=== PATIENT | female | born 1970 | race African-American/Black ===

== ENCOUNTER 2020-02-06 19:30 | Inpatient (IN) | payer OTHER ==
[2020-02-06 19:57] VITALS: BMI 25.7
[2020-02-06] MEDS ORDERED: ACETAMINOPHEN 1000 MG/100 ML VIAL (NON FORMULARY) IVPB ONE (20:11)
[2020-02-06] MEDS ORDERED: SODIUM CHLORIDE 0.9% 500 ML INFUS.BAG IV ONE (20:11)
[2020-02-06] MEDS ORDERED: FAMOTIDINE 20 MG/50 ML IVPB 20 MG/50 ML MG IVPB ONE ×2 (20:11→20:42)
[2020-02-06] MEDS ORDERED: MAG HYDROX/AL HYDROX/SIMETH 30 ML UNIT-DOSE CUP PO ONE (20:12)
--- NOTE | 2020-02-06 20:17 | PDOC ---
History of Present Illness - General Chief Complaint: Pain Stated Complaint: ABD PAIN Time Seen by Provider: 02/06/20 20:10 Past History - Medical History Allergies/Adverse Reactions: Allergies Allergy/AdvReac Type Severity Reaction Status Date / Time Shellfish Allergy Intermediate Difficulty Verified 11/05/12 22:51 Breathing shellfish derived Allergy Intermediate Difficulty Verified 11/06/12 08:06 Breathing cauliflower Allergy Intermediate Difficulty Uncoded 11/05/12 22:51 Breathing Home Medications: Ambulatory Orders Citalopram Hydrobromide [Celexa -] 20 mg PO DAILY 02/07/20 Olanzapine [Zyprexa] 20 mg PO DAILY 02/07/20 Folic Acid - 1 mg PO DAILY #10 tablet 02/08/20 Multivitamins [Multivit ([facility] Formulary)] 1 tab PO DAILY #10 tab 02/08/20 Anemia: No Asthma: No Cancer: No Cardiac Disorders: No CVA: No COPD: No CHF: No Dementia: No Diabetes: No GI Disorders: No Disorders: No HTN: No Hypercholesterolemia: No Kidney Stones: No Liver Disease: No Seizures: Yes (alcohol related) Thyroid Disease: No - Surgical History Abdominal Surgery: No Appendectomy: No Cardiac Surgery: No Cholecystectomy: No Lung Surgery: No Neurologic Surgery: No Orthopedic Surgery: No - Reproductive History PID: Yes - Immunization History Immunization Up to Date: Yes - Psycho-Social/Smoking History Smoking Status: Yes Smoking History: Current every day smoker Years of Tobacco Use: 30 Have you smoked in the past 12 months: Yes Number of Cigarettes Smoked Daily: 10 Cigars Per Day: 0 Information on smoking cessation initiated: No 'Breaking Loose' booklet given: 11/20/15 - Substance Abuse Hx (Audit-C & DAST Scrn) How often the patient has a drink containing alcohol: 4 0r more times/wk Number of drinks the patient has on a typical day: 3 or 4 How often the patient has six or more drinks on one occasion: Daily or almost daily Score: In Men: 4 or > Positive; In Women: 3 or > Positive: 9 Screen Result (Pos requires Nsg. Audit-10AR): Positive In the last yr the pt used illegal drug/Rx for NonMed reason: No Score: Yes response is considered Positive: 0 Screen Result (Positive result requires Nsg. DAST-10): Negative *Physical Exam - Vital Signs Last Vital Signs Temp Pulse Resp BP Pulse Ox 98.5 F 68 19 131/65 99 02/06/20 19:47 02/06/20 19:47 02/06/20 19:47 02/06/20 19:47 02/06/20 19:47 ED Treatment Course - LABORATORY CBC & Chemistry Diagram: 02/08/20 07:19 02/08/20 07:19 - RADIOLOGY Radiology Studies Ordered: Category Date Time Status ABDOMEN & PELVIS CT W/O CONTR [CT] Stat CT Scan 02/06/20 20:12 Ordered CHEST X-RAY PORTABLE* [RAD] Stat Radiology 02/06/20 20:11 Ordered Medical Decision Making - Medical Decision Making 02/06/20 20:13 HPI: 49yo F hx methadone use, MDD on celexa, alcohol abuse (3 large cans beer daily), and smoking sent from for 2 days constant gradual onset worsening nonradiating diffuse upper abdominal pain no improvement with advil worse with deep breaths. Endorses feeling warm yesterday. Endorses chronic poor appetite, worse in the past few days. Took 1 amoxicillin yesterday (daughter had from tooth surgery) but no other recent abx. Denies hx similar sx, F/C, D/C, N/V, headache, lightheadedness, SOB, CP, blood in stool, hematuria, dysuria, change of , hx surgeries, travel, sick contacts, vaginal bleeding or discharge. Post-menopausal. LBM yesterday. ROS: Constitutional: Positive for feeling of warmth. Negative for chills, fever, fatigue, diaphoresis. HENT: Negative for sore throat, rhinorrhea, congestion. Eyes: Negative for visual disturbance. Respiratory: Negative for shortness of breath, cough, and wheezing. Cardiovascular: Negative for chest pain, palpitations, and leg swelling. Gastrointestinal: Positive for abdominal pain, decreased PO intake. Negative for blood in stool, constipation, diarrhea, nausea, and vomiting. Genitourinary: Negative for dysuria, flank pain, and hematuria. Musculoskeletal: Negative for myalgias, back pain, and neck pain. Skin: Negative for rash. Neurological: Negative for light-headedness, dizziness, vertigo, syncope, weakness, numbness and headaches. Psychiatric/Behavioral: Negative for behavioral problems and confusion. PE: Gen: Alert, NAD, comfortable-appearing. HEENT: PERRL, EOMI, MMM, NCAT. No conjunctival pallor. Sclera are non-icteric. CV: Regular rate and rhythm. No murmurs, rubs, or gallops. PULM: No resp distress. CTAB, no wheezes, rales, or rhonchi. ABD: protuberant, soft, diffuse upper abdominal TTP w/guarding, ND, no rebound tenderness, no CVA tenderness, normoactive BS. BACK: No TTP of c/t/l-spine. No step-offs or deformities. MSK: No bony deformities. 2+ pulses in all extremities. NEURO: AAOx3. PERRL. No gross CN deficits. Strength and sensation grossly intact throughout. Normal gait. EXTREMITIES: No cyanosis. No clubbing. No edema. PSYCH: Normal mood and thought pattern. SKIN: Warm and dry. Normal capillary refill. No rashes. No jaundice. MDM: 49yo F hx methadone use, MDD on celexa, alcohol abuse (3 large cans beer daily), and smoking sent from for 2 days constant gradual onset worsening nonradiating diffuse upper abdominal pain worse with deep breaths. Hemodynamically stable, afebrile, diffuse upper abdominal TTP w/guarding. Ddx: pancreatitis, gastritis, SBO, cholelithiasis/cystitis, UTI, , mass/malignancy, infection, metabolic derangement, anemia. Low concern ACS/OH, arrhythmia, PNA. -EKG -CXR -CBC,CMP,Lipase,Cardiac profile,UA/UC/Upreg -CTAP w/IV contrast -IVF -Pain management: GI cocktail -Dispo: pending workup and reassessment 02/06/20 23:07 Labs reviewed. Notable for K 5.5. EKG reviewed: normal sinus rhythm, 60bpm, IA interval 130ms, QTc 504ms prolonged, TWIs in V1/V2/V3, compared to prior 11/20/15 new TWI in V3 -Repeat EKG s/p 1L NS CXR reviewed: No acute pathology CTAP reviewed: mild common bile duct dilatation 0.8cm diameter - suggest MRI/MCP, nonemergent unless otherwise clinically indicated. Diffuse hepatic steatosis with result hepatomegaly. Moderate atherosclerotic vascular calcifications. Cecum located within L mid abdomen presumably due to long mesentery. Appendix visualized within lower abdomen/upper pelvis centrally. No CT e/o acute appendicitis. -RUQ US 02/07/20 01:11 US reviewed: 0.7cm CBD dilatation, no other GB abnormalities seen Admit Discharge - Discharge Information Problems reviewed: Yes Clinical Impression/Diagnosis: Dilated cbd, acquired, Acute electrocardiogram changes, Abnormal EKG Abdominal pain Qualifiers: Abdominal location: unspecified location Qualified Code(s): R10.9 - Unspecified abdominal pain Condition: Improved - Admission Yes - Follow up/Referral - Patient Discharge Instructions - Post Discharge Activity
[2020-02-06 20:40] LABS: BASO % 0.7 % (0-2.0); EOS % 4.2 % (0-4.5); HEMATOCRIT 36.8 % (32.4-45.2); HEMOGLOBIN 12.4 GM/dL (10.7-15.3); LYMPH % 27.1 % (8-40); MCH 28.6 pg (25.7-33.7); MCHC 33.9 g/dl (32.0-36.0); MEAN CELL VOLUME 84.5 fl (80-96); MEAN PLT VOLUME 7.9 fl (7.5-11.1); MONO % 3.6 % (3.8-10.2); NEUT % 64.4 % (42.8-82.8); PLATELET COUNT 273 K/MM3 (134-434); RBC 4.35 M/mm3 (3.60-5.2); RDW 14.1 % (11.6-15.6); WHITE BLOOD COUNT 9.9 K/mm3 (4.0-10.0)
[2020-02-06] MEDS ORDERED: ACETAMINOPHEN INJECTION 100 ML IVPB ONE (20:42)
[2020-02-06] MEDS ORDERED: MAG HYDROX/AL HYDROX/SIMETH 30 ML UNIT-DOSE CUP ONE (20:42)
[2020-02-06 20:52] LABS: PH,URINE 5.5 (5.0-8.0); URINE APPEARANCE CLEAR; URINE BILIRUBIN NEGATIVE (NEGATIVE); URINE COLOR YELLOW; URINE GLUCOSE (UA) NEGATIVE (NEGATIVE); URINE KETONE NEGATIVE (NEGATIVE); URINE LEUK ESTERASE NEGATIVE (NEGATIVE); URINE NITRITE NEGATIVE (NEGATIVE); URINE PROTEIN NEGATIVE (NEGATIVE)
--- NOTE | 2020-02-06 20:52 | PDOC ---
Documentation entered by Denia Wilcox SCRIBE, acting as scribe for Linda Weir DO. Linda Weir DO: This documentation has been prepared by the kiarae, Denia Wilcox SCRIBE, under my direction and personally reviewed by me in its entirety. I confirm that the documentation accurately reflects all work, treatment, procedures, and medical decision making performed by me. Attending Attestation - Resident Resident Name: Clara Stern - ED Attending Attestation I have performed the following: I have examined & evaluated the patient, The case was reviewed & discussed with the resident, I agree w/resident's findings & plan, Exceptions are as noted - HPI HPI: 02/06/20 20:11 Patient is a year old female with a significant past medical history of smoking, alcohol abuse (multiple large beer cans daily), heroin dependence, methadone use, depression, and previous psychiatric hospitalizations, who presents to the ED with worsening abdominal pain x2 days. Patent described the pain as being constant and non radiating which is worse with "deep breaths". Patient stated nothing makes the pain better - patient attempted to self medicate with Advil but felt no improvement. Patient disclosed she was "feeling warm" yesterday. Patient denies: fever, chills, headache, lightheadedness, nausea, vomiting, SOB, chest pain, back pain, diarrhea, constipation, blood in stool, hematuria, dysuria, any changes, any previous surgeries, any recent travel, being in contact with a sick individual, or any other related symptoms. LBM: yesterday Allergies: shellfish, cauliflower PCP: Dr. Rosalie De La Rosa - Physicial Exam PE: 02/06/20 20:50 gen: aaox3, nad heart: +s1s2 reg lungs: cta b/l abd: soft, epigatric and periumbilical ttp without rebound or guarding, no cva ttp, nondistended ext: no c/c/e - Medical Decision Making 02/06/20 20:51 a/p: 49yo female with upper abd pain -hx of etoh use, admits to drinking more recently -concern for alcoholic gastritis vs pancreatitis -no n/v/d -no constipation -pt is on methadone -will send labs, ekg, ct abd/pelvis -will give ivf hydration -will monitor and reassess 02/06/20 21:18 labs reviewed lipase neg 02/06/20 23:20 pt with abnl ekg, new t wave inversions anteriorly, no cp or sob trop neg also ct shows dilated cbd, no stones seen will send for ultrasound most likely will need MRCP and obs for abnl ekg Heart Score/ECG Review - ECG Intrepretation Comment:: 02/06/20 23:39 sinus zoe at 54, nl axis, wve inversions v2-3, no acute st changes, abnl ekg Discharge - Discharge Information Problems reviewed: Yes Clinical Impression/Diagnosis: Abdominal pain, Abnormal EKG, Dilated cbd, acquired Condition: Fair - Admission Yes - Follow up/Referral Referrals: Rosalie De La Rosa MD [Primary Care Provider] - - Patient Discharge Instructions - Post Discharge Activity
[2020-02-06 21:10] LABS: ALBUMIN 3.4 g/dl (3.4-5.0); ALK PHOS 209 U/L (45-117); ANION GAP 9 MMOL/L (8-16); BILIRUBIN,TOTAL 0.8 mg/dL (0.2-1); BLOOD UREA NITROGEN 8.7 mg/dL (7-18); CALCIUM 9.4 mg/dL (8.5-10.1); CHLORIDE 102 mmol/L (98-107); CO2 26 mmol/L (21-32); CREATININE 0.8 mg/dL (0.55-1.3); GLUCOSE,RANDOM 95 mg/dL (74-106); LIPASE 151 U/L (73-393); POTASSIUM 5.5 mmol/L (3.5-5.1); SGOT/AST 95 U/L (15-37); SGPT/ALT 56 U/L (13-61); SODIUM 137 mmol/L (136-145); TOT PROT 8.2 g/dl (6.4-8.2)
[2020-02-06 21:20] LABS: EPI CELLS 11.8 /uL (0-25.1); HYALINE CASTS 0.12 /uL (0-3.1); URINE BACTERIA 95.4 /uL (0-1359); URINE RBC 15.6 /uL (0-23.9); URINE WBC 2.4 /uL (0-25.8)
[2020-02-06] MEDS ORDERED: MAGNESIUM SULF 50% (8.12 MEQ/2 ML-1 GM VIAL) IVPB ONE (23:36)
[2020-02-07] MEDS ORDERED: MAGNESIUM 1GM/D5W - 1 GM/100 ML IVPB IVPB ONE (01:19)
[2020-02-07] MEDS ORDERED: ACETAMINOPHEN 325 MG TABLET (FP) PO PRN (02:27)
[2020-02-07] MEDS ORDERED: THIAMINE HCL 100 MG TABLET (FP) PO ONE (02:37)
[2020-02-07] MEDS ORDERED: LACTATED RINGERS SOLUTION 1,000 ML/1,000 ML INFUS.BAG IV SCH (02:45)
--- NOTE | 2020-02-07 02:54 | HP ---
CHIEF COMPLAINT: Abdominal pain PCP: HISTORY OF PRESENT ILLNESS: 49 y.o. F PMHx Depression on celexa, substance abuse (takes 85mg methadone dialy), Alcohol abuse. Presenting after 3 days of abdominal pain. Patient stated she had been drinking and started to experience L sided abdominal pain that radiated towards the midline. Pain was described as a constant, sharp stabbing of 7/10 intensity and has not experienced this previously. Patient denies headache, chills, SOB, chest pain, N/V/D, dysuria. Pt. takes 85mg methadone daily, CIWA 1, no recent travel, no sick contacts, 2 children, LMP [address]: 0.8 cm dilation of CBD rec MRI/MRCP ER course was notable for: (1) EKG (2) Abd US & CT (3) Tylenol & Mag sulf Recent Travel: None PAST MEDICAL HISTORY: Depression, substance abuse, alcohol abuse PAST SURGICAL HISTORY: 3x D/C Social History: Smokin pack year Alcohol: 6 pack daily Drugs: recovering from heroin abuse; takes 85mg methadone daily Allergies Shellfish Allergy (Intermediate, Verified 11/05/12 22:51) Difficulty Breathing shellfish derived Allergy (Intermediate, Verified 11/06/12 08:06) Difficulty Breathing cauliflower Allergy (Intermediate, Uncoded 11/05/12 22:51) Difficulty Breathing HOME MEDICATIONS: Home Medications Medication Instructions Recorded Citalopram Hydrobromide [Celexa -] 10 mg PO DAILY 11/20/15 Citalopram Hydrobromide [Celexa -] 10 mg PO DAILY #30 tablet 11/20/15 Olanzapine [Zyprexa] 5 mg PO 11/20/15 REVIEW OF SYSTEMS CONSTITUTIONAL: Absent: fever, chills, diaphoresis, generalized weakness, malaise, loss of appetite, weight change HEENT: Absent: rhinorrhea, nasal congestion, throat pain, throat swelling, difficulty swallowing, mouth swelling, ear pain, eye pain, visual changes CARDIOVASCULAR: Absent: chest pain, syncope, palpitations, irregular heart rate, lightheadedness, peripheral edema RESPIRATORY: Absent: cough, shortness of breath, dyspnea with exertion, orthopnea, wheezing, stridor, hemoptysis GASTROINTESTINAL: abdominal pain Absent: abdominal distension, nausea, vomiting, diarrhea, constipation, melena, hematochezia GENITOURINARY: Absent: dysuria, frequency, urgency, hesitancy, hematuria, flank pain, genital pain MUSCULOSKELETAL: Absent: myalgia, arthralgia, joint swelling, back pain, neck pain SKIN: Absent: rash, itching, pallor HEMATOLOGIC/IMMUNOLOGIC: Absent: easy bleeding, easy bruising, lymphadenopathy, frequent infections ENDOCRINE: Absent: unexplained weight gain, unexplained weight loss, heat intolerance, cold intolerance NEUROLOGIC: Absent: headache, focal weakness or paresthesias, dizziness, unsteady gait, seizure, mental status changes, bladder or bowel incontinence PSYCHIATRIC: Absent: anxiety, depression, suicidal or homicidal ideation, hallucinations. PHYSICAL EXAMINATION Vital Signs - 24 hr 02/06/20 02/07/20 19:47 00:31 Temperature 98.5 F 97.4 F L Pulse Rate 68 Pulse Rate [ 55 L Left Radial] Respiratory 19 15 Rate Blood Pressure 131/65 Blood Pressure 144/72 [Right Arm] O2 Sat by Pulse 99 98 Oximetry (%) GENERAL: Awake, alert, and fully oriented, in no acute distress. HEAD: Normal with no signs of trauma. EYES: Pupils equal, round and reactive to light, extraocular movements intact, sclera anicteric, conjunctiva clear. EARS, NOSE, THROAT: Oropharynx clear without exudates. Moist mucous membranes. NECK: JVD, or masses. LUNGS: Breath sounds equal, clear to auscultation bilaterally. No wheezes, and no crackles. No accessory muscle use. HEART: Regular rate and rhythm, normal S1 and S2 without murmur, rub or gallop. ABDOMEN: Soft, epigastric tenderness, not distended, normoactive bowel sounds, no guarding, no rebound, no masses. MUSCULOSKELETAL: Normal range of motion at all joints. No CVA tenderness. UPPER EXTREMITIES: 2+ pulses, warm, well-perfused. No peripheral edema. LOWER EXTREMITIES: 2+ pulses, warm, well-perfused. No calf tenderness. No peripheral edema. NEUROLOGICAL: Cranial nerves II-XII intact. Normal speech. PSYCHIATRIC: Cooperative. Good eye contact. Appropriate mood and affect. SKIN: Warm, dry, normal turgor, no rashes or lesions noted. Laboratory Results - last 24 hr 02/06/20 02/06/20 02/06/20 20:30 20:30 20:30 WBC 9.9 RBC 4.35 Hgb 12.4 Hct 36.8 MCV 84.5 MCH 28.6 MCHC 33.9 RDW 14.1 Plt Count 273 MPV 7.9 Absolute Neuts (auto) 6.4 Neutrophils % 64.4 Lymphocytes % 27.1 Monocytes % 3.6 L Eosinophils % 4.2 Basophils % 0.7 Nucleated RBC % 0 Sodium 137 Potassium 5.5 H Chloride 102 Carbon Dioxide 26 Anion Gap 9 BUN 8.7 Creatinine 0.8 Est GFR (CKD-EPI)AfAm 98.93 Est GFR (CKD-EPI)NonAf 85.36 Random Glucose 95 Calcium 9.4 Total Bilirubin 0.8 AST 95 H ALT 56 Alkaline Phosphatase 209 H Creatine Kinase 151 Creatine Kinase Index No Result Required. CK-MB (CK-2) < 1.0 Troponin I < 0.02 Total Protein 8.2 Albumin 3.4 Lipase 151 Urine Color Urine Appearance Urine pH Ur Specific Elmo Urine Protein Urine Glucose (UA) Urine Ketones Urine Blood Urine Nitrite Urine Bilirubin Urine Urobilinogen Ur Leukocyte Esterase Urine WBC (Auto) Urine RBC (Auto) Urine Casts (Auto) U Epithel Cells (Auto) Urine Bacteria (Auto) Urine HCG, Qual Negative 02/06/20 02/07/20 20:30 01:47 WBC RBC Hgb Hct MCV MCH MCHC RDW Plt Count MPV Absolute Neuts (auto) Neutrophils % Lymphocytes % Monocytes % Eosinophils % Basophils % Nucleated RBC % Sodium Potassium Chloride Carbon Dioxide Anion Gap BUN Creatinine Est GFR (CKD-EPI)AfAm Est GFR (CKD-EPI)NonAf Random Glucose Calcium Total Bilirubin AST ALT Alkaline Phosphatase Creatine Kinase Creatine Kinase Index CK-MB (CK-2) Troponin I 0.02 Total Protein Albumin Lipase Urine Color Yellow Urine Appearance Clear Urine pH 5.5 Ur Specific Elmo 1.004 L Urine Protein Negative Urine Glucose (UA) Negative Urine Ketones Negative Urine Blood 1+ H Urine Nitrite Negative Urine Bilirubin Negative Urine Urobilinogen 1.0 Ur Leukocyte Esterase Negative Urine WBC (Auto) 2.4 Urine RBC (Auto) 15.6 Urine Casts (Auto) 0.12 U Epithel Cells (Auto) 11.8 Urine Bacteria (Auto) 95.4 Urine HCG, Qual ASSESSMENT/PLAN: 49 y.o. F PMHx Depression on celexa, substance abuse, Alcohol abuse. Presenting after 3 days of abdominal pain. # Abdominal Pain - ddx cholelithiasis, alcohol gastritis, - GI consult (Dr. Paul) - AST 95, Alk Phos 209, bili 0.9, lipase 151 - CT abd: 0.8cm dilation of CBD, no gross intraductal calculus identified - US abd: 0.7cm dilation of CBD - CBD dilatation potentially from prior stone passage - MRCP in morning - Tylenol 650mg Q6 - Protonix 40mg Daily # T wave inversion - Admission to tele - Repeat EKG - No T wave inversions from EKG 2015, no others for comparison - K+ 5.5, repeat BMP - Initial trops x2 (-) will repeat # Substance abuse - Currently in methadone program, confirm methadone in AM - Will continue in AM - Thiamine & folic acid order due to alcohol use - KOWS score 0 - CIWA 1 # Hematuria - +1 blood - Rest of UA normal, can repeat if needed #Depression - Holding celexa & olanzapine due to Qtc prolongation - Qtc 495ms - Serial EKG's reccomended # Covid r/o - Covid PCR Ordered - PCR ordered due to geographic location of pandemic - Placed in isolation precautions # FEN - LR @ 85mL/hr - Normal diet # DVT Prophylaxis - Lovenox 40mg SQ Daily # Dispo - Admission to tele; Will continue to monitor vitals and labs Visit type - Emergency Visit Emergency Visit: Yes ED Registration Date: 02/06/20 Care time: The patient presented to the Emergency Department on the above date and was hospitalized for further evaluation of their emergent condition. - New Patient This patient is new to me today: Yes Date on this admission: 02/06/20 - Critical Care Critical Care patient: No ATTENDING PHYSICIAN STATEMENT I saw and evaluated the patient. I reviewed the resident's note and discussed the case with the resident. I agree with the resident's findings and plan as documented. SUBJECTIVE: OBJECTIVE: ASSESSMENT AND PLAN:
[2020-02-07] MEDS ORDERED: THIAMINE HCL 100 MG TABLET (FP) ONE (03:35)
[2020-02-07 06:05] LABS: HEMOGLOBIN 11.1 GM/dL (10.7-15.3); MCH 27.9 pg (25.7-33.7); MCHC 33.5 g/dl (32.0-36.0); MEAN CELL VOLUME 83.3 fl (80-96); MEAN PLT VOLUME 7.5 fl (7.5-11.1); PLATELET COUNT 221 K/MM3 (134-434); RBC 3.96 M/mm3 (3.60-5.2); RDW 14.4 % (11.6-15.6); WHITE BLOOD COUNT 7.3 K/mm3 (4.0-10.0)
--- NOTE | 2020-02-07 06:17 | PN ---
Teaching Attending Note Name of Resident: Tyree Payan ATTENDING PHYSICIAN STATEMENT I saw and evaluated the patient. I reviewed the resident's note and discussed the case with the resident. I agree with the resident's findings and plan as documented. SUBJECTIVE: 49 years old F with PMH of depression, substance abuse, alcohol abuse presented to hospital with abdominal pain. As per patient she started having abd pain 3 days ago, diffuse and paraumbilical area, sharp, 6/10 in and off associated with lack of appetite. No nausea,vomiting and diarrhea. drinks 3 large beers daily 35 pack year smoking history OBJECTIVE: Gen: Alert, NAD, comfortable-appearing. HEENT: PERRL, EOMI, MMM, NCAT. No conjunctival pallor. Sclera are non-icteric. CV: Regular rate and rhythm. No murmurs, rubs, or gallops. PULM: No resp distress. CTAB, no wheezes, rales, or rhonchi. ABD: soft, epigastric and hypogastric tenderness, ND, no rebound tenderness, no CVA tenderness, normoactive BS. BACK: No TTP of c/t/l-spine. No step-offs or deformities. MSK: No bony deformities. 2+ pulses in all extremities. NEURO: AAOx3. PERRL. No gross CN deficits. Strength and sensation grossly intact throughout. Normal gait. EXTREMITIES: No cyanosis. No clubbing. No edema. PSYCH: Normal mood and thought pattern. SKIN: Warm and dry. Normal capillary refill. No rashes. No jaundice. Last Vital Signs Temp Pulse Resp BP Pulse Ox 97.4 F L 55 L 15 144/72 98 02/07/20 00:31 02/07/20 00:31 02/07/20 00:31 02/07/20 00:31 02/07/20 00:31 CT A/p - mild common bile duct dilatation 0.8cm diameter - suggest MRI/MCP, ASSESSMENT AND PLAN: Abd pain with dilated CBD - cholelithisis/ choledocholithiasis possible Alcoholic gastritis Abnormal EKG Substance abuse hematuria Depression r/O COVID Admit to tele serial cardiac enzymes EKG Hydration MRCP in AM thaimine, folate mg,phos,cpk ciwa resume metahdone PPI tylenol PRn rest of the plan as per resident's note discussed in details
[2020-02-07 06:32] LABS: BLOOD UREA NITROGEN 8.7 mg/dL (7-18); CALCIUM 9.1 mg/dL (8.5-10.1); CREATININE 0.7 mg/dL (0.55-1.3); MAGNESIUM 2.8 mg/dL (1.8-2.4); PHOSPHOROUS 4.1 mg/dL (2.5-4.9); POTASSIUM 3.4 mmol/L (3.5-5.1)
[2020-02-07] MEDS: KCL 10 MEQ IVPB 10 MEQ/100 ML INFUS.BAG IVPB SCH ×4 (07:30→09:14)
[2020-02-07] MEDS ORDERED: KCL 10 MEQ IVPB 20 MEQ/200 ML INFUS.BAG IVPB ONE (07:56)
[2020-02-07] MEDS: POTASSIUM CHLORIDE TABS 20 MEQ TABLET.ER (FP) PO ONE ×2 (08:51→09:02)
[2020-02-07] MEDS ORDERED: POTASSIUM CHLORIDE TABS 20 MEQ TABLET.ER (FP) PO ONE (08:51)
[2020-02-07] MEDS ORDERED: PANTOPRAZOLE SODIUM 40 MG/100 ML BAG IVPB ONE (08:52)
[2020-02-07] MEDS: PANTOPRAZOLE SODIUM 40 MG VIAL IVPUSH SCH (09:02)
--- NOTE | 2020-02-07 09:59 | CON.GI ---
Consult Consult Specialty:: GI Referred by:: Hospitalist Service Reason for Consultation:: Andominal pain - History of Present Illness Chief Complaint: Abdominal pain History of Present Illness: 49F admitted through [facility] ER for evaluation of 2 days of progressive mid/left sided abdominal pain. Ibuprpfen makes pain feel better. Deep inspiration and eating makes pain worse. Denies change in bowel habits, nausea, vomiting, rectal bleeding, melena, change in stool caliber. Drinks 3+ cans of beer per day. Blood alcohol level noted. Denies drug use. Current main complaint is pain in right arm where she is receiving IV potassium. No family history of colorectal cancer or other GI malignancy. She has never had a colonoscopy or upper endoscopy. CT scan of the A/P revealed CBD 8mm, fatty liver, cecum positioned in the left paramedian aspect of the abdomen, and otherwise was unrevealing. Abdominal US revealed no stones, no intrahepatic ductal dilatation, CBD 7mm, normal flow in the portal vein. CBC was normal. Chemistries revealed elevated ALP and AST. In review of [facility], ALP has been chronically evelated. She is maintained on daily methadone given her prior history of intranasal heroin abuse. - History Source History Provided By: Patient - Past Medical History Cardio/Vascular: Yes: Hyperlipdemia ...LMP: 10/20/15 Psych: Yes: Addictions (Alcoholism) - Past Surgical History Additional Surgical History: Denies - Alcohol/Substance Use Hx Alcohol Use: Yes (VODKA/HENESSEY) History of Substance Use: reports: Heroin (Intranasal heroin) - Smoking History Smoking history: Current every day smoker Have you smoked in the past 12 months: Yes Aproximately how many cigarettes per day: 10 - Social History Usual Living Arrangement: With Significant Other ADL: Independent Occupation: Unemployed Place of : [employer] History of Recent Travel: No Home Medications - Allergies Allergies/Adverse Reactions: Allergies Allergy/AdvReac Type Severity Reaction Status Date / Time Shellfish Allergy Intermediate Difficulty Verified 11/05/12 22:51 Breathing shellfish derived Allergy Intermediate Difficulty Verified 11/06/12 08:06 Breathing cauliflower Allergy Intermediate Difficulty Uncoded 11/05/12 22:51 Breathing - Home Medications Home Medications: Ambulatory Orders Citalopram Hydrobromide [Celexa -] 20 mg PO DAILY 02/07/20 Olanzapine [Zyprexa] 20 mg PO DAILY 02/07/20 Family Medical History Other Family History: Mother: : 51: [place]. Father: from unclear causes. 2 brothers, 1 sister: Healthy. 3 daughters, 1 son: healthy. No family history of colorectal cancer or other GI malignancy Review of Systems - Review of Systems Constitutional: denies: Chills, Fever Cardiovascular: denies: Chest Pain Respiratory: denies: Cough Gastrointestinal: reports: Abdominal Pain. denies: Bloating, Constipation, Diarrhea, Dysphagia, Indigestion, Melena, Rectal Bleeding, Vomiting Physical Exam-GI Vital Signs: Vital Signs Temperature 98.0 F 02/07/20 07:46 Pulse Rate 55 L 02/07/20 07:46 Respiratory Rate 16 02/07/20 07:46 Blood Pressure 157/104 H 02/07/20 07:46 O2 Sat by Pulse Oximetry (%) 97 02/07/20 07:46 Constitutional: Yes: Calm Eyes: No: Sclera Icterus Cardiovascular: Yes: Regular Rate and Rhythm Respiratory: Yes: CTA Bilaterally Gastrointestinal Inspection: No: Distention ...Auscultate: Yes: Normoactive Bowel Sounds ...Palpate: Yes: Tenderness (Mild TTP mid abdomen) ...Percussion: No: Tympanitic Edema: No (No LE edema) Neurological: Yes: Alert Labs: CBC, BMP 02/07/20 05:45 02/07/20 05:45 Imaging - Results Cat Scan: Report Reviewed, Image Reviewed Problem List - Problems (1) Abdominal pain Assessment/Plan: Unclear etiology. I think the mildly dilated CBD likely incidental finding, possibly from chronic methadone use. Suspect LFT abnormalities from active alc ohol use and fatty liver Advise: Check Hepatitis A/B panel, HCV, diagnostic NPO except meds Abdominal MRI with and without contrast / MRCP to evaluate CBD further and unexplained abdominal pain Advised complete alcohol cessation Monitor for withdrawal If pain persists and pending above, surgical consult, CT scan of abdomen and pelvis with PO contrast to assess bowel ad initial CT scan was non-contrast, EGD when COVID testing allows. Problems reviewed: Yes Code(s): R10.9 - UNSPECIFIED ABDOMINAL PAIN Qualifiers: Abdominal location: unspecified location Qualified Code(s): R10.9 - Unspecified abdominal pain
[2020-02-07] MEDS ORDERED: ENOXAPARIN NA (PORCINE) 40 MG/0.4 ML DISP.SYRIN SQ SCH (10:00)
[2020-02-07] MEDS ORDERED: PANTOPRAZOLE SODIUM 40 MG VIAL IVPUSH SCH (10:00)
[2020-02-07] MEDS ORDERED: POTASSIUM CHLORIDE ORAL LIQUID 20 MEQ/15 ML PO ONE (11:06)
--- NOTE | 2020-02-07 11:14 | EKG ---
Test Reason : Blood Pressure : / mmHG Vent. Rate : 060 BPM Atrial Rate : 060 BPM P-R Int : 130 ms QRS Dur : 088 ms QT Int : 504 ms P-R-T Axes : 020 041 062 degrees QTc Int : 504 ms POOR DATA QUALITY, INTERPRETATION MAY BE ADVERSELY AFFECTED NORMAL SINUS RHYTHM T WAVE ABNORMALITY, CONSIDER ANTERIOR ISCHEMIA PROLONGED QT ABNORMAL ECG NO PREVIOUS ECGS AVAILABLE Confirmed by TRACY OLVERA MD ([id number]) on 02/07/2020 11:14:19 AM Referred By: Confirmed By:TRACY OLVERA MD
--- NOTE | 2020-02-07 11:14 | EKG ---
Test Reason : Blood Pressure : / mmHG Vent. Rate : 054 BPM Atrial Rate : 054 BPM P-R Int : 140 ms QRS Dur : 084 ms QT Int : 522 ms P-R-T Axes : 026 045 055 degrees QTc Int : 495 ms SINUS BRADYCARDIA T WAVE ABNORMALITY, CONSIDER ANTERIOR ISCHEMIA PROLONGED QT ABNORMAL ECG WHEN COMPARED WITH ECG OF 06-FEB-2020 21:04, NO SIGNIFICANT CHANGE WAS FOUND Confirmed by TRACY OLVERA MD ([id number]) on 02/07/2020 11:14:07 AM Referred By: Confirmed By:TRACY OLVERA MD
[2020-02-07] MEDS ORDERED: DEXTROSE 5%-LACTATED RINGERS 1,000 ML IV SCH (11:15)
[2020-02-07] MEDS ORDERED: NICOTINE POLACRILEX 2 MG GUM BUC PRN (11:27)
[2020-02-07] MEDS: DEXTROSE 5%-LACTATED RINGERS 1,000 ML IV SCH (13:22)
--- NOTE | 2020-02-07 13:32 | PN ---
Teaching Attending Note Name of Resident: Shefali Dickinson ATTENDING PHYSICIAN STATEMENT I saw and evaluated the patient. I reviewed the resident's note and discussed the case with the resident. I agree with the resident's findings and plan as documented. SUBJECTIVE: pt seen and examined at bedside, not in acute distress OBJECTIVE: Last Vital Signs Temp Pulse Resp BP Pulse Ox 97.8 F 50 L 16 117/64 99 02/07/20 11:59 02/07/20 11:59 02/07/20 11:59 02/07/20 11:59 02/07/20 11:59 GENERAL: Awake, alert, and fully oriented, in no acute distress. HEENT: AT/NC, not pale/cyanosed or jaundiced, PERRLA, LUNGS: Breath sounds equal, clear to auscultation bilaterally. No wheezes, and no crackles. No accessory muscle use. HEART: Regular rate and rhythm, normal S1 and S2 ABDOMEN: Soft, obese, epigastric tenderness but no rebound tenderness, BS+ MUSCULOSKELETAL: Normal range of motion at all joints. No bony deformities or tenderness. No CVA tenderness. UPPER EXTREMITIES: 2+ pulses, warm, well-perfused. No cyanosis. No clubbing. No peripheral edema. LOWER EXTREMITIES: 2+ pulses, warm, well-perfused. No calf tenderness. No peripheral edema. NEUROLOGICAL: Cranial nerves II-XII intact. Normal speech. CBCD WBC 7.3 K/mm3 (4.0-10.0) 02/07/20 05:45 RBC 3.96 M/mm3 (3.60-5.2) 02/07/20 05:45 Hgb 11.1 GM/dL (10.7-15.3) 02/07/20 05:45 Hct 33.0 % (32.4-45.2) 02/07/20 05:45 MCV 83.3 fl (80-96) 02/07/20 05:45 MCHC 33.5 g/dl (32.0-36.0) 02/07/20 05:45 RDW 14.4 % (11.6-15.6) 02/07/20 05:45 Plt Count 221 K/MM3 (134-434) 02/07/20 05:45 MPV 7.5 fl (7.5-11.1) 02/07/20 05:45 CMP Sodium 139 mmol/L (136-145) 02/07/20 05:45 Potassium 3.4 mmol/L (3.5-5.1) L 02/07/20 05:45 Chloride 104 mmol/L (98-107) 02/07/20 05:45 Carbon Dioxide 29 mmol/L (21-32) 02/07/20 05:45 Anion Gap 6 MMOL/L (8-16) L 02/07/20 05:45 BUN 8.7 mg/dL (7-18) 02/07/20 05:45 Creatinine 0.7 mg/dL (0.55-1.3) 02/07/20 05:45 Calcium 9.1 mg/dL (8.5-10.1) 02/07/20 05:45 Total Bilirubin 0.8 mg/dL (0.2-1) 02/06/20 20:30 AST 95 U/L (15-37) H 02/06/20 20:30 ALT 56 U/L (13-61) 02/06/20 20:30 Alkaline Phosphatase 209 U/L (45-117) H 02/06/20 20:30 Total Protein 8.2 g/dl (6.4-8.2) 02/06/20 20:30 Albumin 3.4 g/dl (3.4-5.0) 02/06/20 20:30 ASSESSMENT AND PLAN: 49 y.o. F PMHx Depression, polysubstance abuse (on methadone daily), EtOH abuse. Presenting after 3 days of abdominal pain. # Epigastric pain - possibly gastritis due to EtOH - h/o PID, unprotected sex with multiple partners - GI consult appreciated - advised about smoking, EtOH cessation. - trend electrolytes, replace as indicated - thiamine, folate, b12, MV - MRCP pending - US, CT finding noted - EKG, troponin non remarkable - will obtain hepatitis panel, STD screening, HIV - May get EGD pending COVID status - monitor CIWA - DVT prophylaxis # h/o depression
--- NOTE | 2020-02-07 13:44 | PN ---
Physical Exam: SUBJECTIVE: Patient seen and examined at bedside this morning. Patient admitted overnight for left-sided abdominal pain. Patient denies any fevers, chills, nausea, vomiting, chest pain, SOB, diarrhea, urinary symptoms. OBJECTIVE: Vital Signs Temperature 97.8 F 02/07/20 11:59 Pulse Rate 50 L 02/07/20 11:59 Respiratory Rate 16 02/07/20 11:59 Blood Pressure 117/64 02/07/20 11:59 O2 Sat by Pulse Oximetry (%) 99 02/07/20 11:59 GENERAL: The patient is awake, alert, and fully oriented, in no acute distress. HEAD: Normal with no signs of trauma. EYES:PERRLA , EOMI, sclera icteric, conjunctiva clear. ENT: moist mucous membranes. NECK: full range of motion, supple. LUNGS: Breath sounds equal, clear to auscultation bilaterally HEART: Regular rate and rhythm, S1, S2 ABDOMEN: Soft, +Epigastric/LUQ tenderness, nondistended, normoactive bowel sounds EXTREMITIES: 2+ pulses, warm, well-perfused, no edema. NEUROLOGICAL: Cranial nerves II through XII grossly intact. Normal speech, normal gait. PSYCH: Normal mood, normal affect. SKIN: Warm, dry, normal turgor Laboratory Results - last 24 hr 02/06/20 02/06/20 02/06/20 20:30 20:30 20:30 WBC 9.9 RBC 4.35 Hgb 12.4 Hct 36.8 MCV 84.5 MCH 28.6 MCHC 33.9 RDW 14.1 Plt Count 273 MPV 7.9 Absolute Neuts (auto) 6.4 Neutrophils % 64.4 Lymphocytes % 27.1 Monocytes % 3.6 L Eosinophils % 4.2 Basophils % 0.7 Nucleated RBC % 0 Sodium 137 Potassium 5.5 H Chloride 102 Carbon Dioxide 26 Anion Gap 9 BUN 8.7 Creatinine 0.8 Est GFR (CKD-EPI)AfAm 98.93 Est GFR (CKD-EPI)NonAf 85.36 Random Glucose 95 Calcium 9.4 Phosphorus Magnesium Total Bilirubin 0.8 AST 95 H ALT 56 Alkaline Phosphatase 209 H Creatine Kinase 151 Creatine Kinase Index No Result Required. CK-MB (CK-2) < 1.0 Troponin I < 0.02 Total Protein 8.2 Albumin 3.4 Triglycerides Cholesterol Total LDL Cholesterol HDL Cholesterol Lipase 151 Urine Color Urine Appearance Urine pH Ur Specific [place] Urine Protein Urine Glucose (UA) Urine Ketones Urine Blood Urine Nitrite Urine Bilirubin Urine Urobilinogen Ur Leukocyte Esterase Urine WBC (Auto) Urine RBC (Auto) Urine Casts (Auto) U Epithel Cells (Auto) Urine Bacteria (Auto) Urine HCG, Qual Negative 02/06/20 02/07/20 02/07/20 20:30 01:47 05:45 WBC 7.3 RBC 3.96 Hgb 11.1 Hct 33.0 MCV 83.3 MCH 27.9 MCHC 33.5 RDW 14.4 Plt Count 221 MPV 7.5 Absolute Neuts (auto) Neutrophils % Lymphocytes % Monocytes % Eosinophils % Basophils % Nucleated RBC % Sodium Potassium Chloride Carbon Dioxide Anion Gap BUN Creatinine Est GFR (CKD-EPI)AfAm Est GFR (CKD-EPI)NonAf Random Glucose Calcium Phosphorus Magnesium Total Bilirubin AST ALT Alkaline Phosphatase Creatine Kinase Creatine Kinase Index CK-MB (CK-2) Troponin I 0.02 Total Protein Albumin Triglycerides Cholesterol Total LDL Cholesterol HDL Cholesterol Lipase Urine Color Yellow Urine Appearance Clear Urine pH 5.5 Ur Specific [place] 1.004 L Urine Protein Negative Urine Glucose (UA) Negative Urine Ketones Negative Urine Blood 1+ H Urine Nitrite Negative Urine Bilirubin Negative Urine Urobilinogen 1.0 Ur Leukocyte Esterase Negative Urine WBC (Auto) 2.4 Urine RBC (Auto) 15.6 Urine Casts (Auto) 0.12 U Epithel Cells (Auto) 11.8 Urine Bacteria (Auto) 95.4 Urine HCG, Qual 02/07/20 05:45 WBC RBC Hgb Hct MCV MCH MCHC RDW Plt Count MPV Absolute Neuts (auto) Neutrophils % Lymphocytes % Monocytes % Eosinophils % Basophils % Nucleated RBC % Sodium 139 Potassium 3.4 L Chloride 104 Carbon Dioxide 29 Anion Gap 6 L BUN 8.7 Creatinine 0.7 Est GFR (CKD-EPI)AfAm 116.27 Est GFR (CKD-EPI)NonAf 100.32 Random Glucose 85 Calcium 9.1 Phosphorus 4.1 Magnesium 2.8 H Total Bilirubin AST ALT Alkaline Phosphatase Creatine Kinase Creatine Kinase Index CK-MB (CK-2) Troponin I 0.02 Total Protein Albumin Triglycerides 86 Cholesterol 220 H Total LDL Cholesterol 102 H HDL Cholesterol 93 H Lipase Urine Color Urine Appearance Urine pH Ur Specific [place] Urine Protein Urine Glucose (UA) Urine Ketones Urine Blood Urine Nitrite Urine Bilirubin Urine Urobilinogen Ur Leukocyte Esterase Urine WBC (Auto) Urine RBC (Auto) Urine Casts (Auto) U Epithel Cells (Auto) Urine Bacteria (Auto) Urine HCG, Qual Active Medications Generic Name Dose Route Start Last Admin Trade Name Freq PRN Reason Stop Dose Admin Acetaminophen 650 mg 02/07/20 02:27 Tylenol - PO Q6H PRN PAIN Enoxaparin Sodium 40 mg 02/07/20 10:00 Lovenox - SQ DAILY ILAN Folic Acid 1 mg 02/08/20 10:00 Folic Acid - PO DAILY ILAN Dextrose/Lactated Ringer's 1,000 mls @ 100 mls/hr 02/07/20 12:35 02/07/20 13:22 D5-Lr - IV 100 mls/hr ASDIR ILAN Administration Multivitamins/Minerals/Vitamin C 1 tab 02/08/20 10:00 Tab-A-Vit - PO DAILY ILAN Nicotine Polacrilex 2 mg 02/07/20 11:27 Nicorette Gum - BUC Q2H PRN NICOTINE REPLACEMENT RX Pantoprazole Sodium 40 mg 02/07/20 10:00 02/07/20 09:02 Protonix Iv IVPUSH 40 mg DAILY ILAN Administration Thiamine HCl 100 mg 02/08/20 10:00 Vitamin B1 - PO DAILY ILAN ASSESSMENT/PLAN: Patient is a 49 year old female with PMH of depression, substance abuse, alcohol abuse (3 beers/day), [id number] history and PID who presented to the ED with 3 days of epigastric/LUQ abdominal pain. #Abdominal pain - Likely 2/2 to gastritis 2/2 EtOH use, on chronic methadone - CT Abd w/o contrast: Slightly dilated CBD (8 mm), no evidence of stone - Abdomen MRI/MRCP pending for further evaluation - Protonix 40 mg IV Daily - CXR, EKG noted, Troponin x3 and CK-MB negative. - Will keep NPO except meds - Continue IVF - Tylenol Q6H PRN for pain - If pain persists, will consider surgery as well as CTAP with PO contrast - For possible EGD, pending COVID testing - Gastroenterology (Dr. Martell) consulted. Recommendations appreciated. #Transaminitis - likely 2/2 alcohol use fatty liver - RUQ US: Mild hepatomegaly with diffuse fatty infiltration of the liver - Will order hepatitis panel - advise alcohol cessation - Will continue to monitor and trend LFTs #Polysubstance use - Alcohol, Nicotine and methadone - Currently CIWA 0, will continue to monitor - Continue Thiamine/folic acid/MV - On Methadone program, patient unwilling to share the details of her medication or pharmacy, as it will be "confusing because they give her the bottles". Patient understands that she will not be able to receive methadone if not confirmed. - will monitor and start detox prn - Currently smokes 10 cigarettes/day - Nicotine gum 2 mg Q2H #Depression - Held celexa/olanzapine due to QTc (495 and 504 ms on 2 EKGs) prolongation -avoid QT prolonging agents #Hx of PID - PAtient gave consent to test for STD panel and HIV #FEN - IVF D5-LR 100 cc/hr - Routine electrolyte monitoring - NPO #DVT PPX - Lovenox 40 mg daily #Disposition -full code -med surg Visit type - Emergency Visit Emergency Visit: Yes ED Registration Date: 02/06/20 Care time: The patient presented to the Emergency Department on the above date and was hospitalized for further evaluation of their emergent condition. - New Patient This patient is new to me today: Yes Date on this admission: 02/07/20 - Critical Care Critical Care patient: No ATTENDING PHYSICIAN STATEMENT I saw and evaluated the patient. I reviewed the resident's note and discussed the case with the resident. I agree with the resident's findings and plan as documented. SUBJECTIVE: OBJECTIVE: ASSESSMENT AND PLAN:
[2020-02-08] MEDS: DEXTROSE 5%-LACTATED RINGERS 1,000 ML IV SCH (03:15)
[2020-02-08 08:06] LABS: HEMATOCRIT 34.8 % (32.4-45.2); HEMOGLOBIN 11.6 GM/dL (10.7-15.3); LYMPH % 43.8 % (8-40); MCH 27.7 pg (25.7-33.7); MCHC 33.2 g/dl (32.0-36.0); MEAN CELL VOLUME 83.5 fl (80-96); MEAN PLT VOLUME 7.9 fl (7.5-11.1); MONO % 5.4 % (3.8-10.2); NEUT % 43.8 % (42.8-82.8); PLATELET COUNT 256 K/MM3 (134-434); RBC 4.16 M/mm3 (3.60-5.2); RDW 14.2 % (11.6-15.6); WHITE BLOOD COUNT 7.2 K/mm3 (4.0-10.0)
[2020-02-08 08:36] LABS: ALBUMIN 3.5 g/dl (3.4-5.0); BILIRUBIN,TOTAL 0.9 mg/dL (0.2-1); BLOOD UREA NITROGEN 8.6 mg/dL (7-18); CALCIUM 10.1 mg/dL (8.5-10.1); CREATININE 0.8 mg/dL (0.55-1.3); MAGNESIUM 2.5 mg/dL (1.8-2.4); PHOSPHOROUS 4.1 mg/dL (2.5-4.9); POTASSIUM 4.2 mmol/L (3.5-5.1); TOT PROT 7.6 g/dl (6.4-8.2)
--- NOTE | 2020-02-08 09:27 | PN ---
Physical Exam: SUBJECTIVE: Patient seen and examined, asking for food OBJECTIVE: Vital Signs Period Temp Pulse Resp BP Sys/Bond Pulse Ox Last 24 Hr 97.6 F-98.2 F 50-61 16-20 117-157/64-93 98-99 GENERAL: The patient is awake, alert, and fully oriented, in no acute distress. HEENT: AT/NC, PERRLA LUNGS: Breath sounds equal, clear to auscultation bilaterally, no wheezes, no crackles, no accessory muscle use. HEART: Regular rate and rhythm, S1, S2 without murmur, rub or gallop. ABDOMEN: Soft, nontender, nondistended, normoactive bowel sounds, no guarding, no rebound, no hepatosplenomegaly, no masses. EXTREMITIES: 2+ pulses, warm, well-perfused, no edema. NEUROLOGICAL: Cranial nerves II through XII grossly intact. Normal speech, gait not observed. PSYCH: Normal mood, normal affect. SKIN: Warm, dry, normal turgor, no rashes or lesions noted Laboratory Results - last 24 hr 02/08/20 02/08/20 02/08/20 07:19 07:19 07:19 WBC 7.2 RBC 4.16 Hgb 11.6 Hct 34.8 MCV 83.5 MCH 27.7 MCHC 33.2 RDW 14.2 Plt Count 256 MPV 7.9 Absolute Neuts (auto) 3.1 Neutrophils % 43.8 D Lymphocytes % 43.8 H D Monocytes % 5.4 Eosinophils % 6.0 H Basophils % 1.0 Nucleated RBC % 0 Sodium 137 Potassium 4.2 Chloride 105 Carbon Dioxide 27 Anion Gap 5 L BUN 8.6 Creatinine 0.8 Est GFR (CKD-EPI)AfAm 98.93 Est GFR (CKD-EPI)NonAf 85.36 Random Glucose 100 Calcium 10.1 Phosphorus 4.1 Magnesium 2.5 H Total Bilirubin 0.9 AST 45 H ALT 45 Alkaline Phosphatase 190 H Total Protein 7.6 Albumin 3.5 Alcohol, Quantitative < 3 Active Medications Generic Name Dose Route Start Last Admin Trade Name Freq PRN Reason Stop Dose Admin Acetaminophen 650 mg 02/07/20 02:27 Tylenol - PO Q6H PRN PAIN Enoxaparin Sodium 40 mg 02/07/20 10:00 Lovenox - SQ DAILY [facility] Folic Acid 1 mg 02/08/20 10:00 Folic Acid - PO DAILY ILAN Dextrose/Lactated Ringer's 1,000 mls @ 100 mls/hr 02/07/20 12:35 02/08/20 03:15 D5-Lr - IV 100 mls/hr ASDIR ILAN Administration Multivitamins/Minerals/Vitamin C 1 tab 02/08/20 10:00 Tab-A-Vit - PO DAILY ILAN Nicotine Polacrilex 2 mg 02/07/20 11:27 Nicorette Gum - BUC Q2H PRN NICOTINE REPLACEMENT RX Pantoprazole Sodium 40 mg 02/07/20 10:00 02/07/20 09:02 Protonix Iv IVPUSH 40 mg DAILY ILAN Administration Thiamine HCl 100 mg 02/08/20 10:00 Vitamin B1 - PO DAILY ILAN ASSESSMENT/PLAN: 49 y.o. F PMHx Depression, polysubstance abuse (on methadone daily), EtOH abuse. Presenting after 3 days of abdominal pain. # Epigastric pain - resolved - possibly gastritis due to EtOH - h/o PID, unprotected sex with multiple partners - GI consult appreciated - advised about smoking, EtOH abstinence - trend electrolytes, replace as indicated - thiamine, folate, b12, MV - MRCP done, pending report - hepatitis panel, STD screening, HIV - advanced low sodium diet - DVT prophylaxis # h/o depression # polysubstance abuse Visit type - Emergency Visit Emergency Visit: Yes ED Registration Date: 02/06/20 Care time: The patient presented to the Emergency Department on the above date and was hospitalized for further evaluation of their emergent condition. - New Patient This patient is new to me today: No - Critical Care Critical Care patient: No - Discharge Referral Referred to [facility] Med P.C.: No
[2020-02-08 09:41] VITALS: BP 141/93; PULSE 59; TEMP 98.2
[2020-02-08] MEDS: PANTOPRAZOLE SODIUM 40 MG VIAL IVPUSH SCH (09:46)
[2020-02-08] MEDS ORDERED: THIAMINE HCL 100 MG TABLET (FP) PO SCH (10:00)
[2020-02-08] MEDS ORDERED: FOLIC ACID 1 MG TABLET (FP) PO SCH (10:00)
[2020-02-08] MEDS ORDERED: MULTIVITAMINS (DAILY MVI) TABLET (FP) PO SCH (10:00)
--- NOTE | 2020-02-08 13:23 | PN.GI ---
GI Progress Note Subjective: GI NOte ( covering Dr Martell): Pain has resolved. LFTs resolving with alcohol abstinence. Has fatty liver which I explained to her reflects alcohol injury and advised her to refrain from any further intake and to also seek weaning off the methadone and to quit smoking. I explained that her dilated CBD likely reflects methadone induced spasm of the sphincter of Oddi. I reviewed the MRCP which reveals a dilated CBD but no stones or overt neoplasm. - Objective Vital Signs: Vital Signs Temperature 98.2 F 02/08/20 09:40 Pulse Rate 59 L 02/08/20 09:40 Respiratory Rate 02/08/20 09:40 Blood Pressure 141/93 02/08/20 09:40 O2 Sat by Pulse Oximetry (%) 98 02/08/20 09:40 Laboratory Tests 02/06/20 02/08/20 02/08/20 20:30 07:19 07:19 WBC 7.2 Total Bilirubin 0.8 0.9 AST 95 H 45 H ALT 56 45 Alkaline Phosphatase 209 H 190 H Constitutional: No Distress Gastrointestinal Inspection: Yes: WNL ...Auscultate: Yes: Normoactive Bowel Sounds ...Palpate: Yes: Soft, Other (nontender) Labs: CBC, BMP 02/08/20 07:19 02/08/20 07:19 Assessment/Plan Impression - Resolved pain likely due to alcoholic gastritis - Resolving alcoholic hepatitis Plan: -- The need for alcohol and other multisubstance abuse and weaning from methadone has been stressed -- No GI objections to discharge Problem List - Problems (1) Alcoholic gastritis Code(s): K29.20 - ALCOHOLIC GASTRITIS WITHOUT BLEEDING (2) Alcoholic hepatitis without ascites Code(s): K70.10 - ALCOHOLIC HEPATITIS WITHOUT ASCITES (3) Alcoholic fatty liver Code(s): K70.0 - ALCOHOLIC FATTY LIVER (4) Abdominal pain Code(s): R10.9 - UNSPECIFIED ABDOMINAL PAIN Qualifiers: Abdominal location: unspecified location Qualified Code(s): R10.9 - Unspecified abdominal pain (5) Dilated cbd, acquired Code(s): K83.8 - OTHER SPECIFIED DISEASES OF BILIARY TRACT (6) Alcohol dependence with uncomplicated withdrawal Code(s): F10.230 - ALCOHOL DEPENDENCE WITH WITHDRAWAL, UNCOMPLICATED (7) Cocaine dependence Code(s): F14.20 - COCAINE DEPENDENCE, UNCOMPLICATED (8) Heroin dependence Code(s): F11.20 - OPIOID DEPENDENCE, UNCOMPLICATED (9) Methadone maintenance therapy patient Code(s): F11.20 - OPIOID DEPENDENCE, UNCOMPLICATED
--- NOTE | 2020-02-08 13:49 | DS ---
Physical Exam: SUBJECTIVE: Patient seen and examined doing well, denies pain OBJECTIVE: Vital Signs Period Temp Pulse Resp BP Sys/Bond Pulse Ox Last 24 Hr 97.6 F-98.2 F 53-61 16-20 136-157/73-93 98-99 PHYSICAL EXAM GENERAL: The patient is awake, alert, and fully oriented, in no acute distress. HEENT: AT/NC, PERRLA LUNGS: Breath sounds equal, clear to auscultation bilaterally, no wheezes, no crackles, no accessory muscle use. HEART: Regular rate and rhythm, S1, S2 without murmur, rub or gallop. ABDOMEN: Soft, nontender, nondistended, normoactive bowel sounds, no guarding, no rebound, no hepatosplenomegaly, no masses. EXTREMITIES: 2+ pulses, warm, well-perfused, no edema. NEUROLOGICAL: Cranial nerves II through XII grossly intact. Normal speech, gait not observed. PSYCH: Normal mood, normal affect. SKIN: Warm, dry, normal turgor, no rashes or lesions noted LABS Laboratory Results - last 24 hr 02/07/20 02/08/20 02/08/20 06:20 07:19 07:19 WBC 7.2 RBC 4.16 Hgb 11.6 Hct 34.8 MCV 83.5 MCH 27.7 MCHC 33.2 RDW 14.2 Plt Count 256 MPV 7.9 Absolute Neuts (auto) 3.1 Neutrophils % 43.8 D Lymphocytes % 43.8 H D Monocytes % 5.4 Eosinophils % 6.0 H Basophils % 1.0 Nucleated RBC % 0 Sodium 137 Potassium 4.2 Chloride 105 Carbon Dioxide 27 Anion Gap 5 L BUN 8.6 Creatinine 0.8 Est GFR (CKD-EPI)AfAm 98.93 Est GFR (CKD-EPI)NonAf 85.36 Random Glucose 100 Calcium 10.1 Phosphorus 4.1 Magnesium 2.5 H Total Bilirubin 0.9 AST 45 H ALT 45 Alkaline Phosphatase 190 H Total Protein 7.6 Albumin 3.5 Alcohol, Quantitative COVID-19 (GIANNI) Not detected 02/08/20 07:19 WBC RBC Hgb Hct MCV MCH MCHC RDW Plt Count MPV Absolute Neuts (auto) Neutrophils % Lymphocytes % Monocytes % Eosinophils % Basophils % Nucleated RBC % Sodium Potassium Chloride Carbon Dioxide Anion Gap BUN Creatinine Est GFR (CKD-EPI)AfAm Est GFR (CKD-EPI)NonAf Random Glucose Calcium Phosphorus Magnesium Total Bilirubin AST ALT Alkaline Phosphatase Total Protein Albumin Alcohol, Quantitative < 3 COVID-19 (GIANNI) HOSPITAL COURSE: pt was admitted to hospital, IV fluids started, MRCP was done to evaluate her pain. GI consult was obtained. Abstinence from alcohol and smoking. Pt symptoms resolved completely by next day, she was able to tolerate diet. HIV and STD work up along with hepatitis panel was obtained after getting permission from patient. Results were not available at time of discharge and patient was instructed to follow up on results with her primary care doctor. Date of Admission:02/06/20 Date of Discharge: 02/08/20 Minutes to complete discharge: 40 Discharge Summary Problems reviewed: Yes Reason For Visit: ACQUIRED DILATION OF COMMON BILE DUCT, ALCOHOL Current Active Problems Abdominal pain (Acute) Abnormal EKG (Acute) Acute electrocardiogram changes (Acute) Alcoholic fatty liver (Acute) Alcoholic hepatitis without ascites (Acute) Dilated cbd, acquired (Acute) Condition: Improved - Instructions Diet, Activity, Other Instructions: Please, schedule a follow up with your primary care doctor within a week Please, avoid alcoholic beverages and smoking. IF you have an emergency, please dial 911 or come to emergency department Referrals: Rosalie De La Rosa MD [Primary Care Provider] - Disposition: HOME - Home Medications Comprehensive Discharge Medication List: Ambulatory Orders Citalopram Hydrobromide [Celexa -] 20 mg PO DAILY 02/07/20 Olanzapine [Zyprexa] 20 mg PO DAILY 02/07/20 Folic Acid - 1 mg PO DAILY #10 tablet 02/08/20 Multivitamins [Multivit ([facility])] 1 tab PO DAILY #10 tab 02/08/20 This patient is new to me today: No Emergency Visit: Yes ED Registration Date: 02/06/20 Care time: The patient presented to the Emergency Department on the above date and was hospitalized for further evaluation of their emergent condition. Critical Care patient: No - Discharge Referral Referred to [facility] Med P.C.: No
--- NOTE | 2020-02-09 17:35 | EKG ---
Test Reason : Blood Pressure : / mmHG Vent. Rate : 049 BPM Atrial Rate : 049 BPM P-R Int : 138 ms QRS Dur : 084 ms QT Int : 514 ms P-R-T Axes : 028 039 050 degrees QTc Int : 464 ms SINUS BRADYCARDIA NONSPECIFIC T WAVE ABNORMALITY anterior leades PROLONGED QT ABNORMAL ECG WHEN COMPARED WITH ECG OF 06-FEB-2020 23:19, NO SIGNIFICANT CHANGE WAS FOUND Confirmed by MD Krysta, Long ([id number]) on 02/09/2020 5:35:42 PM Referred By: Confirmed By:Long Chaparro MD
== END 2020-02-08 14:35 | disposition home or self-care (01) | DRG 280 ==
LOC: JER 19:30 → JERBED 23:35 → J6WEST-2 02-07 14:48
PROVIDERS: ADMIT Internal Medicine; ATTEND Student in an Organized Health Care Education/Training Program
DX: K70.10 Alcoholic hepatitis without ascites (principal); K29.20 Alcoholic gastritis without bleeding; K83.8 Other specified diseases of biliary tract; F17.210 Nicotine dependence, cigarettes, uncomplicated; F32.9 Major depressive disorder, single episode, unspecified; R74.0 Nonspecific elevation of levels of transaminase and lactic acid dehydrogenase [LDH]; K70.0 Alcoholic fatty liver; F11.20 Opioid dependence, uncomplicated; R94.31 Abnormal electrocardiogram [ECG] [EKG]; R31.9 Hematuria, unspecified; K76.0 Fatty (change of) liver, not elsewhere classified; R10.13 Epigastric pain
CPT/HCPCS: 36415; 71045-TC-FY; 74176-TC; 74181-TC; 76705-TC; 80048; 80053; 80061; 80074; 80307; 81003; 82550; 82553; 83690; 83721; 83735; 84100; 84484; 84703; 85025; 85027; 86803; 87086; 87389; 93005; 93010; 99285-25; J0131; U0003

== ENCOUNTER 2021-02-09 06:04 | Inpatient (IN) | payer OTHER ==
[2021-02-09] MEDS ORDERED: ACETAMINOPHEN 325 MG TABLET (FP) PO PRN ×2 (06:44)
[2021-02-09] MEDS ORDERED: chlordiazePOXIDE HCL 25 MG CAPSULE PO ONE (06:44)
[2021-02-09] MEDS ORDERED: MAGNESIUM HYDROX 2400MG/30ML ORAL SUSPENSION 30 ML CUP PO PRN (06:44)
[2021-02-09] MEDS ORDERED: IBUPROFEN 400 MG TABLET (FP) PO PRN (06:44)
[2021-02-09] MEDS ORDERED: ONDANSETRON *ODT* 4 MG TABLET SL PRN (06:44)
[2021-02-09] MEDS ORDERED: MENTHOL/PHENOL 1 EACH UD MM PRN (06:44)
[2021-02-09] MEDS ORDERED: MAGNESIUM CITRATE 300 ML BOTTLE PO PRN (06:44)
[2021-02-09] MEDS ORDERED: METHOCARBAMOL 500 MG TABLET PO PRN (06:44)
[2021-02-09] MEDS ORDERED: BISMUTH SUBSALICYLATE 262 MG/15 ML BTL PO PRN (06:44)
[2021-02-09] MEDS ORDERED: NICOTINE POLACRILEX 2 MG GUM BUC PRN (06:44)
[2021-02-09] MEDS ORDERED: chlordiazePOXIDE HCL 25 MG CAPSULE PO PRN (06:44)
[2021-02-09] MEDS ORDERED: MAG HYDROX/AL HYDROX/SIMETH 30 ML UNIT-DOSE CUP PO PRN (06:44)
[2021-02-09] MEDS ORDERED: methaDONE HCL 10 MG TABLET PO ONE (07:25)
[2021-02-09] MEDS ORDERED: methaDONE HCL 10 MG TABLET ONE (07:52)
[2021-02-09] MEDS ORDERED: methaDONE HCL 40 MG DISPERSABLE TABLET ONE (07:53)
[2021-02-09] MEDS ORDERED: methaDONE 40 MG, methaDONE 10 MG PO ONE (08:00)
[2021-02-09 08:01] VITALS: BMI 22.4
[2021-02-09] MEDS ORDERED: hydrOXYzine PAMOATE 25 MG CAPSULE (FP) PO PRN (08:01)
[2021-02-09] MEDS ORDERED: diazePAM 5 MG TABLET PO PRN (08:02)
[2021-02-09] MEDS ORDERED: hydrOXYzine PAMOATE 25 MG CAPSULE (FP) PO SCH (10:00)
[2021-02-09] MEDS: CITALOPRAM HYDROBROMIDE 20 MG TABLET PO SCH (10:34)
[2021-02-09] MEDS: diazePAM 5 MG TABLET PO SCH ×3 (10:35→23:23)
[2021-02-09] MEDS: PRENATAL VITAMINS W/ FOLIC ACID TABLET (FP) PO SCH (10:35)
[2021-02-09] MEDS: NICOTINE 14 MG/24 HOURS TOPICAL PATCH TD SCH (10:35)
[2021-02-09] MEDS ORDERED: chlordiazePOXIDE HCL 25 MG CAPSULE PO SCH (11:00)
[2021-02-09] MEDS: THIAMINE HCL 100 MG TABLET (FP) PO SCH (22:13)
[2021-02-09] MEDS: MELATONIN 5 MG TABLETS PO SCH (22:13)
[2021-02-10] MEDS ORDERED: methaDONE HCL 10 MG TABLET ONE (04:27)
[2021-02-10] MEDS ORDERED: methaDONE HCL 40 MG DISPERSABLE TABLET ONE (04:27)
[2021-02-10] MEDS ORDERED: methaDONE HCL 40 MG DISPERSABLE TABLET PO SCH (06:00)
[2021-02-10] MEDS: diazePAM 5 MG TABLET PO SCH ×4 (07:25→22:36)
[2021-02-10] MEDS: methaDONE 40 MG, methaDONE 10 MG PO SCH (07:25)
[2021-02-10 10:08] LABS: HEMATOCRIT 39.7 % (32.4-45.2); HEMOGLOBIN 13.2 GM/dL (10.7-15.3); MCH 26.9 pg (25.7-33.7); MCHC 33.3 g/dl (32.0-36.0); MEAN CELL VOLUME 80.7 fl (80-96); PLATELET COUNT 313 10^3/uL (134-434); RBC 4.93 M/mm3 (3.60-5.2); RDW 14.4 % (11.6-15.6); WHITE BLOOD COUNT 5.9 K/mm3 (4.0-10.0)
[2021-02-10 10:10] LABS: ALBUMIN 3.1 g/dl (3.4-5.0)
[2021-02-10 10:12] LABS: CREATININE 0.7 mg/dL (0.55-1.3)
[2021-02-10 10:14] LABS: BILIRUBIN,TOTAL 0.2 mg/dL (0.2-1)
[2021-02-10] MEDS: NICOTINE 14 MG/24 HOURS TOPICAL PATCH TD SCH (10:14)
[2021-02-10] MEDS: CITALOPRAM HYDROBROMIDE 20 MG TABLET PO SCH (10:14)
[2021-02-10] MEDS: PRENATAL VITAMINS W/ FOLIC ACID TABLET (FP) PO SCH (10:14)
[2021-02-10 10:23] LABS: CALCIUM 9.5 mg/dL (8.5-10.1)
[2021-02-10] MEDS: MELATONIN 5 MG TABLETS PO SCH (22:36)
[2021-02-10] MEDS: THIAMINE HCL 100 MG TABLET (FP) PO SCH (22:36)
[2021-02-11] MEDS ORDERED: methaDONE HCL 10 MG TABLET ONE (04:26)
[2021-02-11] MEDS ORDERED: methaDONE HCL 40 MG DISPERSABLE TABLET ONE (04:26)
[2021-02-11] MEDS ORDERED: chlordiazePOXIDE HCL 25 MG CAPSULE PO SCH (05:00)
[2021-02-11] MEDS: methaDONE 40 MG, methaDONE 10 MG PO SCH (05:46)
[2021-02-11] MEDS: diazePAM 5 MG TABLET PO SCH ×3 (05:47→22:32)
[2021-02-11] MEDS: NICOTINE 14 MG/24 HOURS TOPICAL PATCH TD SCH (09:44)
[2021-02-11] MEDS: PRENATAL VITAMINS W/ FOLIC ACID TABLET (FP) PO SCH (09:44)
[2021-02-11] MEDS: CITALOPRAM HYDROBROMIDE 20 MG TABLET PO SCH (09:44)
[2021-02-11] MEDS: THIAMINE HCL 100 MG TABLET (FP) PO SCH (22:31)
[2021-02-11] MEDS: MELATONIN 5 MG TABLETS PO SCH (22:32)
[2021-02-12] MEDS ORDERED: chlordiazePOXIDE HCL 10 MG CAPSULE PO PRN
[2021-02-12] MEDS ORDERED: methaDONE HCL 40 MG DISPERSABLE TABLET ONE (03:37)
[2021-02-12] MEDS ORDERED: methaDONE HCL 10 MG TABLET ONE (03:37)
[2021-02-12] MEDS ORDERED: chlordiazePOXIDE HCL 10 MG CAPSULE PO SCH (05:00)
[2021-02-12] MEDS: methaDONE 40 MG, methaDONE 10 MG PO SCH (06:16)
[2021-02-12] MEDS: diazePAM 5 MG TABLET PO SCH ×2 (06:17→17:51)
[2021-02-12] MEDS: CITALOPRAM HYDROBROMIDE 20 MG TABLET PO SCH (10:41)
[2021-02-12] MEDS: PRENATAL VITAMINS W/ FOLIC ACID TABLET (FP) PO SCH (10:41)
[2021-02-12] MEDS: NICOTINE 14 MG/24 HOURS TOPICAL PATCH TD SCH (11:06)
[2021-02-12] MEDS ORDERED: NICOTINE 10 MG CARTRIDGE (INHALER) IH PRN (12:12)
[2021-02-12] MEDS: MELATONIN 5 MG TABLETS PO SCH (21:50)
[2021-02-12] MEDS: THIAMINE HCL 100 MG TABLET (FP) PO SCH (21:51)
[2021-02-12 22:05] VITALS: TEMP 96.8
[2021-02-13] MEDS ORDERED: methaDONE HCL 10 MG TABLET ONE (04:53)
[2021-02-13] MEDS ORDERED: methaDONE HCL 40 MG DISPERSABLE TABLET ONE (04:54)
[2021-02-13] MEDS ORDERED: chlordiazePOXIDE HCL 10 MG CAPSULE PO SCH (05:00)
[2021-02-13] MEDS ORDERED: diazePAM 5 MG TABLET PO ONE (06:00)
[2021-02-13] MEDS: methaDONE 40 MG, methaDONE 10 MG PO SCH (06:13)
[2021-02-13 09:02] VITALS: BP 104/75; PULSE 73
[2021-02-13] MEDS: NICOTINE 14 MG/24 HOURS TOPICAL PATCH TD SCH (09:39)
[2021-02-13] MEDS: CITALOPRAM HYDROBROMIDE 20 MG TABLET PO SCH (09:41)
[2021-02-13] MEDS: PRENATAL VITAMINS W/ FOLIC ACID TABLET (FP) PO SCH (09:41)
[2021-02-14] MEDS ORDERED: chlordiazePOXIDE HCL 10 MG CAPSULE PO ONE (05:00)
== END 2021-02-13 09:54 | disposition home or self-care (01) | DRG 773 ==
LOC: YASAS 06:04 → Y3N 06:45
PROVIDERS: ADMIT Allergy & Immunology; ATTEND Allergy & Immunology
PROC: HZ2ZZZZ Detoxification Services for Substance Abuse Treatment (ICD-10-PCS; principal; 2021-02-09)
DX: F10.230 Alcohol dependence with withdrawal, uncomplicated (principal); F11.20 Opioid dependence, uncomplicated; F14.20 Cocaine dependence, uncomplicated; F17.210 Nicotine dependence, cigarettes, uncomplicated; F43.10 Post-traumatic stress disorder, unspecified; F41.9 Anxiety disorder, unspecified; F32.9 Major depressive disorder, single episode, unspecified; R00.0 Tachycardia, unspecified; Z91.013 Allergy to seafood; Z91.018 Allergy to other foods; Z56.0 Unemployment, unspecified
CPT/HCPCS: 36415; 71046-TC-FY; 80053; 85027; C9803; U0003; U0005

== ENCOUNTER 2021-04-16 14:23 | Emergency (ER) | payer OTHER ==
[2021-04-16 14:37] VITALS: BP 124/76; PULSE 94; TEMP 98.1; BMI 23.4
[2021-04-16] MEDS ORDERED: KETOROLAC TROMETHAMINE 60 MG/2 ML VIAL IM ONE (16:13)
[2021-04-16] MEDS ORDERED: ACETAMINOPHEN 500 MG TABLET (FP) PO ONE (16:14)
[2021-04-16] MEDS ORDERED: KETOROLAC TROMETHAMINE 60 MG/2 ML VIAL ONE (16:18)
[2021-04-16] MEDS ORDERED: ACETAMINOPHEN 500 MG TABLET (FP) ONE (16:25)
[2021-04-16 17:06] LABS: EOS % 4.2 % (0-4.5); HEMATOCRIT 34.8 % (32.4-45.2); HEMOGLOBIN 12.1 GM/dL (10.7-15.3); LYMPH % 42.3 % (8-40); MCH 27.6 pg (25.7-33.7); MCHC 34.6 g/dl (32.0-36.0); MEAN CELL VOLUME 79.7 fl (80-96); MEAN PLT VOLUME 8.3 fl (7.5-11.1); MONO % 6.8 % (3.8-10.2); NEUT % 45.7 % (42.8-82.8); PLATELET COUNT 272 10^3/uL (134-434); RBC 4.37 M/mm3 (3.60-5.2); RDW 14.8 % (11.6-15.6); WHITE BLOOD COUNT 8.6 K/mm3 (4.0-10.0)
[2021-04-16 17:35] LABS: CALCIUM 8.9 mg/dL (8.5-10.1)
[2021-04-16 17:36] LABS: ALBUMIN 3.6 g/dl (3.4-5.0); BLOOD UREA NITROGEN 13.1 mg/dL (7-18)
[2021-04-16 17:39] LABS: CREATININE 0.6 mg/dL (0.55-1.3)
[2021-04-16 17:41] LABS: BILIRUBIN,TOTAL 0.4 mg/dL (0.2-1); TOT PROT 8.1 g/dl (6.4-8.2)
[2021-04-16 18:52] LABS: EPI CELLS 17 /uL (0-25.1); HYALINE CASTS 1 /uL (0-3.1); PH,URINE 5.5 (5.0-8.0); URINE APPEARANCE CLEAR; URINE BACTERIA 127 /uL (0-1359); URINE BILIRUBIN NEGATIVE (NEGATIVE); URINE COLOR YELLOW; URINE GLUCOSE (UA) NEGATIVE (NEGATIVE); URINE KETONE NEGATIVE (NEGATIVE); URINE LEUK ESTERASE TRACE (NEGATIVE); URINE NITRITE NEGATIVE (NEGATIVE); URINE PROTEIN NEGATIVE (NEGATIVE); URINE RBC 4 /uL (0-23.9); URINE UROBILINOGEN 0.2 mg/dL (0.2-1.0); URINE WBC 11 /uL (0-25.8)
== END 2021-04-16 19:43 | disposition home or self-care (01) ==
LOC: JER 14:23
PROC: 3E0233Z Introduction of Anti-inflammatory into Muscle, Percutaneous Approach (ICD-10-PCS; principal; 2021-04-16)
DX: M54.50 Low back pain, unspecified (principal)
CPT/HCPCS: 36415; 80053; 81003; 85025; 87086; 99284-25

== ENCOUNTER 2024-03-02 18:19 | Emergency (ER) | payer OTHER ==
[2024-03-02 18:27] VITALS: BP 107/68; PULSE 76; RESP 18; TEMP 97.7; BMI 26.4
[2024-03-02] MEDS ORDERED: MAG HYDROX/AL HYDROX/SIMETH 30 ML UNIT-DOSE CUP ONE (20:02)
[2024-03-02] MEDS: MAG HYDROX/AL HYDROX/SIMETH 30 ML UNIT-DOSE CUP PO ONE (20:03)
== END 2024-03-02 21:04 | disposition home or self-care (01) ==
LOC: JER 18:19
DX: R14.0 Abdominal distension (gaseous) (principal); R10.84 Generalized abdominal pain; R53.83 Other fatigue
CPT/HCPCS: 74018-TC-FY; 99283-25